=== PATIENT | male | born 1960 | race African-American/Black ===

== ENCOUNTER 2021-03-02 01:48 | Emergency (ER) | payer BC, OTHER ==
[~2021-03-02] VITALS: Ht 175.3 cm; Wt 87.0 kg
[2021-03-02] MEDS ORDERED: METOCLOPRAMIDE HCL 10MG/2ML VIAL IV ONE (02:45)
[2021-03-02] MEDS ORDERED: DIPHENHYDRAMINE 50MG/ML VIAL IV ONE (02:45)
[2021-03-02] MEDS ORDERED: ONDANSETRON 4MG ODT PO ONE (03:15)
[2021-03-02] MEDS ORDERED: HYDROCODONE/ACETAMINOPHEN 5/325MG TABLET PO ONE (03:15)
[2021-03-02 03:30] LABS: BASOPHILS % 1.1 % (0.0-2.0); EOSINOPHILS % 2.9 % (0.0-5.0); HEMATOCRIT. 43.7 % (42.0-52.0); HEMOGLOBIN. 14.7 g/dL (14.0-18.0); LYMPHOCYTES % 28.2 % (20.0-50.0); MEAN CORPUSCULAR HEMOGLOBIN 28.6 pg (28.0-32.0); MEAN CORPUSCULAR VOLUME 85.1 fL (80.0-94.0); MEAN PLATELET VOLUME 8.6 fl (7.4-10.4); MONOCYTES % 7.1 % (2.0-8.0); NEUTROPHILS % 60.7 % (40.0-76.0); PLATELET 194 x1000/uL (130-400); RED BLOOD CELL COUNT 5.13 mill/uL (4.7-6.1)
[2021-03-02 03:31] LABS: CHLORIDE 104 mEq/L (98-107)
[2021-03-02] MEDS ORDERED: IBUP-2029 MT (05:47)
[2021-03-02] MEDS ORDERED: ONDA4TAB5 MT (05:47)
[2021-03-02 06:10] VITALS: BP 159/93
== END 2021-03-02 06:27 | disposition home or self-care (01) ==
LOC: ER 01:48
DX: R51.9 Headache, unspecified (principal); E11.9 Type 2 diabetes mellitus without complications; I10 Essential (primary) hypertension
CPT/HCPCS: 36415; 70450; 71045; 80053; 85025; 93005; 99285; Q0162

== ENCOUNTER 2023-07-20 05:30 | Emergency (ER) | payer BC, OTHER ==
[~2023-07-20] VITALS: Ht 175.3 cm; Wt 81.0 kg
[~2023-07-20 05:30] MED LIST: IBUP-2029 MT; ONDA4TAB5 MT
[2023-07-20 05:31] VITALS: BP 151/94; O2SAT 98
[2023-07-20] MEDS ORDERED: ACETAMINOPHEN 325MG TABLET PO STA (06:31)
[2023-07-20] MEDS ORDERED: METOCLOPRAMIDE HCL 10MG/2ML VIAL IV ONE (06:45)
[2023-07-20] MEDS ORDERED: SODIUM CHLORIDE 0.9% 1,000 ML IV ONE (06:45)
[2023-07-20] MEDS ORDERED: METOCLOPRAMIDE HCL 10MG/2ML VIAL IV NR (09:30)
[2023-07-20] MEDS ORDERED: ACETAMINOPHEN 325MG TABLET PO NR (09:30)
[2023-07-20] MEDS ORDERED: ACET-2708 MT (11:58)
[2023-07-20 12:15] VITALS: PULSE 64; RESP 14; TEMP 98
== END 2023-07-20 12:19 | disposition home or self-care (01) ==
LOC: ER 05:30
DX: G43.909 Migraine, unspecified, not intractable, without status migrainosus (principal); E11.9 Type 2 diabetes mellitus without complications; I10 Essential (primary) hypertension
CPT/HCPCS: 70450; 96361; 96374; 99285; J2765; J7030; Z7610 ×3